=== PATIENT | female | born 1985 | race Caucasian/White ===

== ENCOUNTER 2017-05-05 14:02 | Inpatient (IN) | payer OTHER ==
[2017-05-05] MEDS ORDERED: NS 1,000 ML IV ONE (14:06)
[2017-05-05] MEDS ORDERED: METOCLOPRAMIDE 10 MG/2 ML VIAL IVP ONE (14:06)
[2017-05-05] MEDS ORDERED: KETOROLAC 30 MG/1 ML SDV IVP ONE (14:06)
--- NOTE | 2017-05-05 14:06 | EDPHY ---
HPI/HX/ROS/PE/MDM Narrative: CHIEF COMPLAINT: Migraine, left sided numbness HPI: The patient is a 31 y/o female with a history of migraines and hypothyroidism arriving via EMS complaining of a migraine with aura, onset 8:30 AM, 6 hours ago. She took 2 Tylenol PM around 10:00 AM, which usually helps, but did not experience any improvement. Around an hour ago she began experiencing left sided numbness with a "pins and needles" feeling. She is complaining of difficulty breathing due to tightness in her lungs, tightness in her neck, and numbness in her tongue. She denies any trauma or precipitating factors. EMS did not note complaint of extremity numbness, and stated that patient was able to walk on scene. REVIEW OF SYSTEMS: Aside from elements discussed in the HPI, a comprehensive 10-point review of systems was reviewed and is negative. PMH: Migraines, hypothyroidism SOCIAL HISTORY: Sister lives nearby, lives in [place], PHYSICAL EXAM: General:Patient is lethargic. Able to speak in full sentences but slowly. ENT:Eyes are normal to inspection. ENT inspection normal. Photophobia noted. Neck: Normal inspection. Full range of motion. Respiratory:No respiratory distress. Breath sounds normal bilaterally. Cardiovascular: Regular rate and rhythm. Strong peripheral pulses. Normal cap refill. Abdomen:The abdomen is nontender to palpation. There are no peritoneal signs. There are normal bowel sounds. Back: Normal to inspection. No tenderness to palpation. Skin: Normal color. No rash. Warm and dry. Extremities: Normal appearance. No signs trauma. Neuro: Oriented x3. Able to flex and extend fingers of left hand and extend wrist, but 0/5 strength to elbow and shoulder. LTS intact throughout LUE. Exam somewhat variable - unclear if she is actually giving full effort. EOMI. No facial droop. Mild slurred speech. ED Course: Study: Non-contrast CT of the head Indication: Numbness in the left side Results: CT scan of the head was obtained. The results of the study are: Normal The study was read by the radiologist, Dr. Brumfield. I viewed the images myself on the PACS system. Study: X-ray of the chest Indication: Left-sided numbness Results: X-ray of the chest was obtained. The results of the study are: normal The study was read by the radiologist, Dr. Brumfield. I viewed the images myself on the PACS system. EKG was ordered and interpreted by myself. Normal sinus rhythm, Please see [facility] system for official reading. Study: CTA of the head and neck Indication: Left-sided numbness Results: CTA scan of the head and neck was obtained. The results of the study are: vertebral artery occluded The study was read by the radiologist, Dr. Dominguez. I viewed the images myself on the PACS system. 1414: On initial exam patient is presenting with left-sided weakness and numbness onset 1 hour ago. She is able to speak in full sentences but is speaking slowly. She describes this as different from any migraine she has had before. Due to her symptoms I feel it is necessary to call a stroke alert. 1424: I consulted with Dr. Izaguirre at [facility] regarding this patient. She agrees to examine using the robot once she is back from imaging. 1430: I spoke with Dr. Brumfield, radiology regarding this patient. CT was normal. 1604: I spoke with Dr. Izaguirre regarding her evaluation of this patient. She advises no TPA secondary to improving symptoms on her exam. She requests a CTA, which was ordered. If negative, she would like to admit overnight and likely MRI in the morning. 1830: I spoke with Dr. Dominguez, radiology, who confirmed occlusion of vertebral artery. [facility] re-paged for consult, as patient may be a candidate for angiography and IR removal of clot. 18:35: Spoke with Dr. Hicks from [facility] and informed her of CTA results - she is not familiar with the case and is going to contact Dr. Izaguirre. 1852: I spoke with Dr. Hicks from [facility]. She has reviewed the case and discussed the imaging report with IR at her facility. She does not advise transfer or acute intervention. They are unclear if this represents a chronic vs an acute occlusion. She advises admission here at [facility]. 1906: I spoke with Dr. Ceballos, neurology, who agrees to consult on this patient. He agrees on admission. Paging hospitalist service. 2: I spoke with hospitalist service regarding admission for this patient. Dr. Conroy agrees to admit. - Data Points Imaging Results: Imaging Impressions Chest X-Ray 05/05/17 14:20 Impression: Negative portable chest. Head CT 05/05/17 14:20 Impression: Normal noncontrast CT of the brain. Results called to Dr. Jase Torre at 2:28 PM at the time of the interpretation. Head CTA 05/05/17 16:09 Impression: 1. Patent right and left carotid vasculature. 2. Patent right vertebral artery, however the left vertebral artery is occluded 13 mm after its takeoff with some "wispy" reconstitution at the left C2-C3 level , and then further occlusion to the skull base where it is then patent once again (perhaps from cross fill from the patent right vertebral artery). CT ANGIOGRAPHY OF THE HEAD: The major vessels of the [place] demonstrate no evidence of an aneurysm, avascular malformation, dissection, flow -limiting stenosis, or occlusion. The distal cervical, petrous, cavernous, and supraclinoid portions of the right and left internal carotid arteries are patent. As was mentioned above, the left vertebral artery is occluded at the skull base, although reconstitutes just proximal to the vertebral-basilar confluence, and the right PICA is patent, and there does appear to be some flow within the left PICA. The basilar artery, superior cerebellar arteries, and the posterior cerebral arteries are also patent. The superior sagittal sinus, transverse sinuses, and major veins demonstrate no evidence of intraluminal thrombi. Impression: The distal left vertebral artery remains occluded along its most distal cervical aspect extending to the skull base, although there is some reconstituted flow just proximal to the vertebral-basilar confluence. The anterior carotid circulation is patent. Measurement of carotid stenosis is based on the residual internal carotid diameter with [place] Symptomatic Carotid Endarterectomy Trial (NASCET) based stenosis levels. Findings were discussed with Jase Torre MD at 18:24, on 05/05/2017. Neck CTA 05/05/17 16:09 Impression: 1. Patent right and left carotid vasculature. 2. Patent right vertebral artery, however the left vertebral artery is occluded 13 mm after its takeoff with some "wispy" reconstitution at the left C2-C3 level , and then further occlusion to the skull base where it is then patent once again (perhaps from cross fill from the patent right vertebral artery). CT ANGIOGRAPHY OF THE HEAD: The major vessels of the [place] demonstrate no evidence of an aneurysm, avascular malformation, dissection, flow -limiting stenosis, or occlusion. The distal cervical, petrous, cavernous, and supraclinoid portions of the right and left internal carotid arteries are patent. As was mentioned above, the left vertebral artery is occluded at the skull base, although reconstitutes just proximal to the vertebral-basilar confluence, and the right PICA is patent, and there does appear to be some flow within the left PICA. The basilar artery, superior cerebellar arteries, and the posterior cerebral arteries are also patent. The superior sagittal sinus, transverse sinuses, and major veins demonstrate no evidence of intraluminal thrombi. Impression: The distal left vertebral artery remains occluded along its most distal cervical aspect extending to the skull base, although there is some reconstituted flow just proximal to the vertebral-basilar confluence. The anterior carotid circulation is patent. Measurement of carotid stenosis is based on the residual internal carotid diameter with [place] Symptomatic Carotid Endarterectomy Trial (NASCET) based stenosis levels. Findings were discussed with Jase Torre MD at 18:24, on 05/05/2017. Imaging: Discussed imaging studies w/ consultant [employer]. vice president [employer] (ex ) Radiologist, I viewed and interpreted images myself Laboratory Results: Laboratory Results 05/05/17 14:00 05/05/17 14:00 05/05/17 05/05/17 05/05/17 14:11 14:00 14:00 WBC RBC Hgb POC Hgb 16.0 gm/dL gm/dL (12.6-16.3) Hct POC Hct 47 % % (38-47) MCV MCH MCHC RDW Plt Count MPV Neut % (Auto) Lymph % (Auto) Sherman % (Auto) Eos % (Auto) Baso % (Auto) Nucleat RBC Rel Count Absolute Neuts (auto) Absolute Lymphs (auto) Absolute Monos (auto) Absolute Eos (auto) Absolute Basos (auto) Absolute Nucleated RBC Immature Gran % Immature Gran # PT INR POC Sodium 140 mEq/L mEq/L (134-144) Sodium 140 mEq/L mEq/L (134-144) POC Potassium 3.3 mEq/L mEq/L (3.3-5.0) Potassium 3.6 mEq/L mEq/L (3.5-5.2) POC Chloride 107 mEq/L mEq/L (97-110) Chloride 104 mEq/L mEq/L (97-110) Carbon Dioxide 17 mEq/l L mEq/l (22-31) Anion Gap 19 mEq/L H mEq/L (8-16) POC BUN 10 mg/dL mg/dL (7-23) BUN 10 mg/dL mg/dL (7-23) Creatinine 0.7 mg/dL mg/dL (0.6-1.0) POC Creatinine 0.6 mg/dL mg/dL (0.6-1.0) Estimated GFR > 60 Glucose 145 mg/dL H mg/dL (70-100) POC Glucose 156 mg/dL H mg/dL (70-100) Calcium 9.9 mg/dL mg/dL (8.5-10.4) Beta HCG, Qual NEGATIVE 05/05/17 05/05/17 14:00 14:00 WBC 10.47 10^3/uL H 10^3/uL (3.80-9.50) RBC 4.95 10^6/uL 10^6/uL (4.18-5.33) Hgb 15.5 g/dL g/dL (12.6-16.3) POC Hgb Hct 43.7 % % (38.0-47.0) POC Hct MCV 88.3 fL fL (81.5-99.8) MCH 31.3 pg pg (27.9-34.1) MCHC 35.5 g/dL g/dL (32.4-36.7) RDW 12.4 % % (11.5-15.2) Plt Count 214 10^3/uL 10^3/uL (150-400) MPV 10.3 fL fL (8.7-11.7) Neut % (Auto) 85.4 % H % (39.3-74.2) Lymph % (Auto) 11.2 % L % (15.0-45.0) Sherman % (Auto) 2.7 % L % (4.5-13.0) Eos % (Auto) 0.0 % L % (0.6-7.6) Baso % (Auto) 0.2 % L % (0.3-1.7) Nucleat RBC Rel Count 0.0 % % (0.0-0.2) Absolute Neuts (auto) 8.95 10^3/uL H 10^3/uL (1.70-6.50) Absolute Lymphs (auto) 1.17 10^3/uL 10^3/uL (1.00-3.00) Absolute Monos (auto) 0.28 10^3/uL L 10^3/uL (0.30-0.80) Absolute Eos (auto) 0.00 10^3/uL L 10^3/uL (0.03-0.40) Absolute Basos (auto) 0.02 10^3/uL 10^3/uL (0.02-0.10) Absolute Nucleated RBC 0.00 10^3/uL 10^3/uL (0-0.01) Immature Gran % 0.5 % % (0.0-1.1) Immature Gran # 0.05 10^3/uL 10^3/uL (0.00-0.10) PT 13.0 SEC SEC (12.0-15.0) INR 0.99 (0.83-1.16) POC Sodium Sodium POC Potassium Potassium POC Chloride Chloride Carbon Dioxide Anion Gap POC BUN BUN Creatinine POC Creatinine Estimated GFR Glucose POC Glucose Calcium Beta HCG, Qual Medications Given: Discontinued Medications Diphenhydramine HCl (Benadryl Injection) 25 mg IVP EDNOW ONE Stop: 05/05/17 14:07 Last Admin: 05/05/17 14:38 Dose: 25 mg Sodium Chloride (Ns) 1,000 mls @ 0 mls/hr IV ONCE ONE; Wide Open PRN Reason: Protocol Stop: 05/05/17 14:07 Last Admin: 05/05/17 14:36 Dose: 1,000 mls Ketorolac Tromethamine (Toradol) 30 mg IVP EDNOW ONE Stop: 05/05/17 14:07 Last Admin: 05/05/17 14:37 Dose: 30 mg Metoclopramide HCl (Reglan Injection) 10 mg IVP EDNOW ONE Stop: 05/05/17 14:07 Last Admin: 05/05/17 14:41 Dose: 10 mg Ondansetron HCl (Zofran) 4 mg IVP EDNOW ONE Stop: 05/05/17 18:06 Last Admin: 05/05/17 18:07 Dose: 4 mg Point of Care Test Results: 05/05/17 14:11 POC Sodium 140 POC Potassium 3.3 POC Chloride 107 POC BUN 10 POC Creatinine 0.6 POC Glucose 156 H General Initial Vital Signs: Initial Vital Signs Heart Rate 74 05/05/17 14:14 Respiratory Rate 18 11/12/17 14:14 Blood Pressure 183/108 H 05/05/17 14:14 O2 Sat (%) 99 05/05/17 14:14 O2 Delivery Mode Room Air Allergies/Adverse Reactions: No Known Allergies Allergy (Unverified 05/05/17 14:13) Home Medications: Medication Instructions Recorded Levothyroxine [Synthroid 88 mcg 88 mcg PO DAILY06 05/05/17 (*)] Liothyronine Sodium [Cytomel 5 mcg 5 mcg PO DAILY@06 05/05/17 (*)] Multivitamins [Multivitamin (*)] 1 each PO DAILY 05/05/17 Departure - Departure Disposition: [facility] Inpatient Acute Clinical Impression: Vertebral artery occlusion Qualifiers: Laterality: left Qualified Code(s): I65.02 - Occlusion and stenosis of left vertebral artery Condition: Fair Report Scribed for: Jase Torre Report Scribed by: Mariah Padron Date of Report: 05/05/17 Time of Report: 14:06 Physician Review and Approval Statement: Portions of this note were transcribed by an ED scribe. I personally performed the history, physical exam, and medical decision making; and confirm the accuracy of the information in the transcribed note.
[2017-05-05 14:33] LABS: % IMMATURE GRANULYOCYTES 0.5 % (0.0-1.1); ABSOLUTE IMMATURE GRANULOCYTES 0.05 10^3/uL (0.00-0.10); ADD DIFF? NO; ADD MORPH? NO; ADD SCAN? NO; ATYPICAL LYMPHOCYTE FLAG 0 (0-99); FRAGMENT RBC FLAG 0 (0-99); HEMATOCRIT 43.7 % (38.0-47.0); HEMOGLOBIN 15.5 g/dL (12.6-16.3); LEFT SHIFT FLG 0 (0-99); LIPEMIA HEMOLYSIS FLAG 90 (0-99); MEAN CELL HEMOGLOBIN 31.3 pg (27.9-34.1); MEAN CELL HEMOGLOBIN CONCENTR. 35.5 g/dL (32.4-36.7); MEAN CELL VOLUME 88.3 fL (81.5-99.8); MEAN PLATELET VOLUME 10.3 fL (8.7-11.7); PLATELET CLUMPS FLAG 10 (0-99); PLATELET COUNT 214 10^3/uL (150-400); RED BLOOD CELL COUNT 4.95 10^6/uL (4.18-5.33); RED CELL DISTRIBUTION WIDTH 12.4 % (11.5-15.2)
[2017-05-05 14:50] LABS: INR 0.99 (0.83-1.16)
[2017-05-05 14:52] LABS: ANION GAP 19 mEq/L (8-16); CALCIUM 9.9 mg/dL (8.5-10.4); CARBON DIOXIDE 17 mEq/l (22-31); CHLORIDE 104 mEq/L (97-110); CREATININE 0.7 mg/dL (0.6-1.0); GLOMERULAR FILTRATION RATE > 60; GLUCOSE 145 mg/dL (70-100); POTASSIUM 3.6 mEq/L (3.5-5.2); SODIUM 140 mEq/L (134-144)
--- NOTE | 2017-05-05 15:03 | CPEKG ---
Heart Rate: 72 RR Interval: 833 P-R Interval: 152 QRSD Interval: 94 QT Interval: 448 QTC Interval: 491 P [place]: 19 QRS [place]: 58 T Wave [place]: 19 EKG Severity - BORDERLINE ECG - EKG Impression: SINUS RHYTHM EKG Impression: BORDERLINE T WAVE ABNORMALITIES EKG Impression: BORDERLINE PROLONGED QT INTERVAL Electronically Signed By: Kasey Haynes 05-May-2017 15:20:40
[2017-05-05] MEDS ORDERED: IOPAMIDOL (ISOVUE 370) 100 ML BTL IV ONE (16:29)
[2017-05-05] MEDS ORDERED: ONDANSETRON 4 MG/2 ML VIAL IVP ONE (18:05)
[2017-05-05] MEDS ORDERED: oxyCODONE IR 5 MG TAB PO PRN (20:56)
[2017-05-05] MEDS ORDERED: LORazepam 0.5 MG TAB PO PRN (20:56)
[2017-05-05] MEDS ORDERED: ONDANSETRON DISINTEGRATING 4 MG TAB PO PRN (20:56)
[2017-05-05] MEDS ORDERED: ONDANSETRON 4 MG/2 ML VIAL IVP PRN (20:56)
[2017-05-05] MEDS ORDERED: HYDROmorphone HCL/NS/PF 0.4 MG/2 ML SYR IVP PRN (21:11)
[2017-05-05] MEDS: PROMETHAZINE HCL 25 MG/ML INJ IVP PRN (21:32)
--- NOTE | 2017-05-05 22:08 | GHP ---
[f rep st] HISTORY AND PHYSICAL DATE OF ADMISSION: 05/05/2017 CHIEF COMPLAINT: Headache. HISTORY: This is a 31-year-old female, past medical history of migraine headache, who presents with severe headache associated with difficulty speaking as well as a left facial droop and left-sided arm weakness and numbness. She was initially seen as a stroke alert. Her symptoms were rapidly resolvi ng, however, and therefore she was felt by [facility] not to be a t-PA candidate. She ana russell underwent imaging in the emergency department including a noncontrasted head CT which was negati ve as well as head and neck CTA, which showed a left vertebral artery occlusion with some reconstitut ed flow which Neurology did not feel was related to her current presentation and therefore was not in dicative of need for surgical intervention. At the time of my evaluation, she continues to complain of severe headache as well as persistent nausea. She notes her speech difficulties and weakness have improved, although she still has some sensation of tingling on her left side. She has never had a s imilar episode in the past, although she does note that she has severe migraine with aura relatively frequently. PAST MEDICAL HISTORY: Migraine and hypothyroidism. PAST SURGICAL HISTORY: Denies. FAMILY HISTORY: Denies. SOCIAL HISTORY: Patient is . She does not use drugs or significant amounts of alcohol. REVIEW OF SYSTEMS: 10-point review of systems obtained, negative except as per HPI. HOME MEDICATIONS: 1. Multivitamin. 2. Liothyronine. 3. Levothyroxine. ALLERGIES: No known drug allergies. PHYSICAL EXAM: VITAL SIGNS: BP 97/59, heart rate 66, respiratory rate 18, O2 sats 97% on room air. Temperature is 36.7. GENERAL APPEARANCE: This is a well-developed, well-nourished female. She is in moderate distress. EYES: Anicteric. HENT: Oropharynx clear, MMM. CARDIOVASCULAR: RRR, no MRG . PULMONARY: CTA bilaterally. Normal work of breathing. ABDOMEN: Soft, nontender. EXTREMITIES: No clubbing, cyanosis, or edema. SKIN: Warm, dry, well perfused. NEURO/PSYCH: The patient is unc omfortable, but otherwise is moving all extremities, and cranial nerves appear to be intact. CLINICAL DATA: 1. Labs reviewed. Significant for a white blood cell count of 10.47. Coags are unremarkable. Chem istry is remarkable only for a glucose of 145. 2. Head CT personally reviewed and interpreted is normal. 3. Head and neck CTA shows left vertebral artery occlusion with some reconstituted flow. 4. Chest x-ray personally reviewed and interpreted as normal. 5. EKG personally reviewed and interpreted shows normal sinus rhythm. ASSESSMENT/PLAN: This is a 31-year-old female, past medical history of migraines, presenting with co mplex migraine and found to have a left vertebral artery occlusion. 1. Complex migraine. This seems to be the most likely etiology for her current presenting symptoms. This has been intractable and so far has been mostly refractory to pain medications. Will continue with intravenous opiates as needed along with Toradol, Benadryl, Phenergan as needed. Otherwise, he r neurologic symptoms have largely resolved. 2. Left vertebral artery occlusion. Again, this does not appear to be acute based on the imaging fi nding. Neurology is aware. Lipid panel pending and a formal neurology consultation as well pending. 3. Hyperglycemia, likely stress response. However, hemoglobin A1c currently pending, especially giv en vertebral artery occlusion. 4. Leukocytosis. Again, suspect this is stress response without other signs and symptoms of infecti on. 5. Disposition: Observation status. 6. The patient is new to my care. Old records reviewed, summarized as per HPI and Past Medical Hist ory. Care plan reviewed with the emergency room physician. Further history obtained from patient's parents present at bedside. /[id number]/MODL
[2017-05-05] MEDS: KETOROLAC 15 MG/1 ML SDV IVP SCH (23:27)
[2017-05-06 01:52] LABS: HEMOGLOBIN A1C 5.7 % (4.0-6.0)
[2017-05-06] MEDS: PROMETHAZINE HCL 25 MG/ML INJ IVP PRN ×3 (04:25→17:33)
[2017-05-06] MEDS: KETOROLAC 15 MG/1 ML SDV IVP SCH ×3 (05:13→17:32)
[2017-05-06 05:21] LABS: CHOLESTEROL 162 mg/dL (140-200); CHOLESTEROL/HDL RATIO 2.35 RATIO (1.00-4.44); HIGH DENSITY LIPOPROTEIN 69 mg/dL (40-80); LDL/HDL RATIO 1.22 RATIO (1.00-3.22); LOW DENSITY LIPOPROTEIN 84 mg/dL (70-100); NON-HIGH DENSITY LIPOPROTEIN 93 mg/dL (90-129); TRIGLYCERIDE 47 mg/dL (35-135); VERY LOW DENSITY LIPOPROTEINS 9 mg/dL (8-25)
[2017-05-06] MEDS: LIOTHYRONINE SODIUM 5 MCG TAB PO SCH (05:35)
[2017-05-06] MEDS: LEVOTHYROXINE 88 MCG TAB PO SCH (05:36)
[2017-05-06] MEDS ORDERED: LORazepam 2 MG/ML INJ IVP PRN (09:38)
--- NOTE | 2017-05-06 09:56 | NEUROPROG ---
Assessment: HOSPITAL NEUROLOGY CONSULT REQUESTING: Jovan Conroy MD REASON: occluded vertebral artery HPI: 31 year old right-handed woman with a history of migraines presented to our ED yesterday with severe nausea, vomiting, vertigo, diplopia, headache, numbness and gait instability. Patient notes yesterday morning she developed an abrupt onset left retro- orbital severe splitting headache. This was accompanied by nausea and vomiting. She was feeling very dizzy, of room-spinning quality, and couldn't walk because of her symptoms. A few hours later she developed left face/arm numbness and horizontal diplopia. She also felt her speech was slurred for a brief period of time. She called her sister, who is an ED nurse, and she was advised to go to the ED. She called 911 and was transported to our facility. She had improvement in her left face/arm numbness, but continues this morning with severe nausea/vomiting and vertigo. She is also still having episodic diplopia. She cannot move her head in the slightest without onset of vomiting. Her headache is better today. She felt short of breath with onset of her symptoms, but no chest pain or palpitations. No recent head/neck trauma or acceleration/deceleration movements. No hearing change or tinnitus. No history of hypercoaguability. She states this episode is significantly different from her prior migraines, which worried her. CT head wo was done in the ED which was normal, but CTA head/neck showed an occluded left vertebral artery about 13mm from its origin with intracranial reconstitution very distally. ROS: As per the HPI, otherwise a complete 12 point ROS was performed and is negative ALLERGIES AND MEDS: As recorded in the EMR - reviewed and reconciled PFSH: As per the intake H&P by Dr. Conroy from yesterday EXAM: VS reviewed in EMR GEN: WDWN laying in visible distress HEENT: NCAT, sclera anicteric, conjunctiva not injected, MMM, oropharynx clear, no scalp tenderness NECK: supple, nontender, no meningismus CV: RRR s1 s2 wo m/r/c/g. Carotid pulses 2+ wo bruit NEURO: MS: awake, alert, oriented to all spheres. Speech nondysarthric. No language disturbance. Follows commands. Attends to both sides. Recent/remote memory grossly intact. Mood anxious. Good fund of knowledge. CN: pupils 5mm round and reactive. Fundi with sharp discs. VFF. Primary gaze centered - no skew. Full ocular motility. Multidirectional nystagmus in all directions of gaze. Facial sensation preserved. Face symmetric. Hearing grossly intact to finger rub. Palatoglossal movements intact. Shoulder shrug and head turn strong. MOTOR: normal bulk/tone. No adventitial movements. Full power throughout. SENSORY: intact to all modalities throughout. No extinction. COORD: no ataxia FN/HS. Ralph preserved. REFLEX: plantars down. No clonus. DTRS 2/4. GAIT: deferred to PT safety eval DATA REVIEW: Labs reviewed in EMR TTE pending LDL 84 A1c pending PERSONALLY INTERPRETED RESULTS AND DATA: CTA head/neck as per the HPI CT head wo as per the [facility] IMPRESSION AND RECOMMENDATIONS: // LEFT VERTEBRAL ARTERY OCCLUSION // SUSPECT POSTERIOR CIRCULATION ISCHEMIC STROKE Patient with severe and abrupt onset of symptoms referable to the posterior circulation. This is in the setting of an occluded left vertebral artery in a young patient with no known vascular risk factors. - MRI brain wo - cont ASA - start low dose statin for goal LDL < 70 - goal normotension - avoid narcotics for headache - OK to use NSAID PRN - treat nausea/vertigo with lorazepam 0.5mg IV q8hr PRN, as well as already ordered antiemetics - would start IVF since she can't keep anything down PO - TTE pending - PT/OT/[employer] PORTAL CONSULTANT consults - further recommendations pending MRI results Objective: Vital Signs Temp Pulse Resp BP Pulse Ox 36.8 C 84 29 H 91/61 L 96 05/06/17 07:36 05/06/17 07:36 05/06/17 07:36 05/06/17 07:36 05/06/17 07:36 05/05/17 05/06/17 05/07/17 05:59 05:59 05:59 Intake Total 1100 Output Total 300 Balance 800 PT 13.0 SEC (12.0-15.0) 05/05/17 14:00 INR 0.99 (0.83-1.16) 05/05/17 14:00 Allergies/Adverse Reactions: No Known Allergies Allergy (Unverified 05/05/17 14:13)
[2017-05-06] MEDS: ENOXAPARIN 40 MG/0.4 ML SYR SC SCH (10:07)
--- NOTE | 2017-05-06 10:25 | ASMTCMCOM ---
CM Note CM Note Notes: Patient chart reviewed. MRI pending. Speech, PT and OT pending. Needs to be determined. CM to follow. Date Signed: 05/06/2017 10:24 AM Electronically Signed By:Ketty Collins RN
[2017-05-06] MEDS: ASPIRIN 81 MG CHEWABLE TAB PO SCH (13:44)
[2017-05-06] MEDS ORDERED: PROMETHAZINE HCL 25 MG/ML INJ IVP ONE (13:56)
[2017-05-06] MEDS ORDERED: D5W 1/2 NS 1,000 ML IV SCH (14:00)
--- NOTE | 2017-05-06 14:33 | HOSPPROG ---
Hospitalist Progress Note Assessment/Plan: 31-year-old female presents emergency room complaints of nausea vomiting severe migraine. Also with left-sided weakness and deficit. 1st encounter, chart reviewed. * LEFT VERTEBRAL ARTERY OCCLUSION Per CT angio * ISCHEMIC STROKE abrupt onset of symptoms occluded left vertebral artery no known vascular risk factors. MRI brain wo cont ASA * N/V Start IV fluids Continue antiemetics * ELEVATED LDL Add Lipitor * DISPOSITION Unclear given need for further evaluation Patient's symptoms resolving Residual weakness maintains Await MRI results - TTE pending - PT/OT/COUNCIL MEMBER consults Subjective: Feeling a bit better. Still having some nausea. Still has headache. Objective: Vital Signs Temp Pulse Resp BP Pulse Ox 37.1 C 84 16 91/54 L 95 05/06/17 12:00 05/06/17 12:00 05/06/17 12:00 05/06/17 12:00 05/06/17 12:00 05/05/17 05/06/17 05/07/17 05:59 05:59 05:59 Intake Total 1100 Output Total 300 350 Balance 800 -350 PT 13.0 SEC (12.0-15.0) 05/05/17 14:00 INR 0.99 (0.83-1.16) 05/05/17 14:00 - Physical Exam Constitutional: appears nourished, not in pain, uncomfortable Eyes: PERRL, anicteric sclera, EOMI Ears, Nose, Mouth, Throat: moist mucous membranes, hearing normal, ears appear normal Cardiovascular: regular rate and rhythym, No JVD, No edema Respiratory: no respiratory distress, no rales or rhonchi, reduced air movement Gastrointestinal: normoactive bowel sounds, No tenderness, No ascites Skin: warm, normal color, No erythema Musculoskeletal: normal joint ROM, no joint effusions, generalized weakness Neurologic: AAOx3, weakness, other (Slurred speech) Psychiatric: interacting appropriately, not anxious, not encephalopathic, thought process linear ICD10 Worksheet Patient Problems: Problems Problem Status Onset Vertebral artery occlusion Acute
[2017-05-06] MEDS: MULTIVITAMINS 1 EACH TAB PO SCH (14:41)
--- NOTE | 2017-05-06 16:13 | ECHO ---
[email or web address] [address] [address] Main: [phone] Fax: Transthoracic Echocardiogram Name: JUAN GRESHAM MR#: [id number] Study Date: 05/06/2017 Study Time: 10:27 AM Date of : 1985 Age: 31 year(s) Height: 172.7 cm (68 in.) Weight: 70.31 kg (155 lb.) BSA: 1.83 m2 Gender: Female Examination: Echo with Agitated Saline Indication: ischemic stroke; bubble Image Quality: Adequate Contrast: Requested by: Jaylen Ceballos BP: 91 mmHg/61 mmHg Heart Rate: Rhythm: Indication: ischemic stroke; bubble Procedure Staff Services Engineer: Cherrie Vieyra Reading Physician: Brian Musa Requesting Provider: Conclusions: Normal global systolic LV function. EF is 76 %. No regional wall motion abnormality. Normal size right ventricle. An agitated saline study was performed and was positive for intracardiac shunting. There is no previous echocardiogram for comparison. Measurements: Chambers Valvular Assessment AV/MV Valvular Assessment TV/PV Normal Normal Normal Name Value Range Name Value Range Name Value Range Ao Milvia (MM): 3.1 cm (2.2 cm-3.7 AV Vmax: 1.53 m/s (1 m/s-1.7 TR Vmax: 2.31 mm/s ( - ) cm) m/s) TR PGmax: 21 mmHg ( - ) IVSd (2D): 0.7 cm (0.6 cm-1.1 AV maxP mmHg ( - ) syst. PAP: 26 mmHg ( - ) cm) AV meanP mmHg ( - ) LVDd (2D): 4.2 cm (3.9 cm-5.3 MV E Vmax: 0.71 m/s ( - ) cm) MV A Vmax: 0.56 m/s ( - ) LVDs (2D): 2.4 cm (2.1 cm-4 MV E/A: 1.27 ( - ) cm) LVPWd (2D): 0.7 cm ( - ) LVEF (MOD4): 76 % (>=55 %) Continued Measurements: Chambers Valvular Assessment AV/MV Valvular Assessment TV/PV Name Value Name Value Name Value LADs: 2.9 cm MV E/E' Septal: 7.10 CVP (est.): 5 mmHg LADs Lon.2 cm MV E/E' Lateral: 7.20 LA Area: 17.3 cm2 Patient: JUAN GRESHAM Study Date: 05/06/2017 Page 1 of 2 10:27 AM Additional Vessels Name Value Ao Ascendin.8 cm Findings: Left Ventricle: Normal size left ventricle. No LV hypertrophy. Normal global systolic LV function. EF is 76 %. No regional wall motion abnormality. Normal diastolic LV function. Right Ventricle: Normal size right ventricle. Left Atrium: The left atrium is normal in size. An agitated saline study was performed and was positive for intracardiac shunting. Right Atrium: The right atrium is normal in size. Mitral Valve: The mitral valve is normal in appearance and function. Aortic Valve: The aortic valve is normal in appearance and function. Tricuspid Valve: The tricuspid valve is normal in appearance and function. Trivial tricuspid valve regurgitation. Pulmonic Valve: The pulmonic valve is normal in appearance and function. Aorta: The aorta is normal. Pericardium: No pericardial effusion. (No Signature Object) Patient: JUAN GRESHAM Study Date: 05/06/2017 Page 2 of 2 10:27 AM [id number]
--- NOTE | 2017-05-06 16:24 | PDMN ---
Medical Necessity Medical necessity: M81 stroke- ischemic - [address] - occluded L vertebral artery, cont. monitor and tx.
[2017-05-06] MEDS: ACETAMINOPHEN 325 MG TAB PO PRN (20:15)
[2017-05-07] MEDS: PROMETHAZINE HCL 25 MG/ML INJ IVP PRN ×3 (01:11→16:00)
[2017-05-07] MEDS: KETOROLAC 15 MG/1 ML SDV IVP SCH ×3 (01:12→12:55)
[2017-05-07] MEDS: LIOTHYRONINE SODIUM 5 MCG TAB PO SCH (06:37)
[2017-05-07] MEDS: LEVOTHYROXINE 88 MCG TAB PO SCH (06:37)
[2017-05-07 07:22] VITALS: PULSE 87
[2017-05-07] MEDS ORDERED: ATORVASTATIN CALCIUM 10 MG TAB PO SCH (09:00)
[2017-05-07] MEDS: ACETAMINOPHEN 325 MG TAB PO PRN ×2 (09:10→16:06)
[2017-05-07] MEDS: ASPIRIN 81 MG CHEWABLE TAB PO SCH (09:50)
[2017-05-07] MEDS: MULTIVITAMINS 1 EACH TAB PO SCH (09:50)
[2017-05-07] MEDS: ENOXAPARIN 40 MG/0.4 ML SYR SC SCH (09:51)
--- NOTE | 2017-05-07 10:06 | NEUROPROG ---
Assessment: BACKGROUND: 05/06 31 year old right-handed woman with a history of migraines presented to our ED 05/05 with severe nausea, vomiting, vertigo, diplopia, headache, numbness and gait instability. Patient notes yesterday morning she developed an abrupt onset left retro- orbital severe splitting headache. This was accompanied by nausea and vomiting. She was feeling very dizzy, of room-spinning quality, and couldn't walk because of her symptoms. A few hours later she developed left face/arm numbness and horizontal diplopia. She also felt her speech was slurred for a brief period of time. She called her sister, who is an ED nurse, and she was advised to go to the ED. She called 911 and was transported to our facility. She had improvement in her left face/arm numbness, but continues this morning with severe nausea/vomiting and vertigo. She is also still having episodic diplopia. She cannot move her head in the slightest without onset of vomiting. Her headache is better today. She felt short of breath with onset of her symptoms, but no chest pain or palpitations. No recent head/neck trauma or acceleration/deceleration movements. No hearing change or tinnitus. No history of hypercoaguability. She states this episode is significantly different from her prior migraines, which worried her. CT head wo was done in the ED which was normal, but CTA head/neck showed an occluded left vertebral artery about 13mm from its origin with intracranial reconstitution very distally. INTERVAL HISTORY: 05/07: Nausea and vomiting improved. Still with mild dizziness and unsteadiness when ambulating to bathroom. No new symptoms. She is very averse to long-term medication therapy. Stroke workup ongoing. EXAM: VS reviewed in EMR MS: awake, alert, oriented to all spheres. Speech with subtle dysarthria. No language disturbance. Follows commands. Attends to both sides. Recent/remote memory grossly intact. Mood anxious. Good fund of knowledge. CN: pupils 5mm round and reactive. Fundi with sharp discs. VFF. Primary gaze centered - no skew. Full ocular motility. Multidirectional nystagmus in all directions of gaze. Facial sensation preserved. Face symmetric. Hearing grossly intact to finger rub. Palatoglossal movements intact. Shoulder shrug and head turn strong. MOTOR: normal bulk/tone. No adventitial movements. Full power throughout. SENSORY: intact to all modalities throughout. No extinction. COORD: no ataxia FN/HS. Ralph preserved. REFLEX: plantars down. No clonus. DTRS 2/4. GAIT: deferred to PT safety eval DATA REVIEW: Labs reviewed in EMR TTE preserved EF, normal chamber architecture, no mass, PFO present LDL 84 A1c 5.7 LE dopplers - no DVT UDS - neg PERSONALLY INTERPRETED RESULTS AND DATA: CTA head/neck as per the [facility] CT head wo as per the [facility] MRI brain wo - acute/subacute left medullary infarct IMPRESSION AND RECOMMENDATIONS: // LEFT VERTEBRAL ARTERY OCCLUSION // LEFT MEDULLARY INFARCT Patient with severe and abrupt onset of symptoms referable to the posterior circulation. This is in the setting of an occluded left vertebral artery in a young patient with no known vascular risk factors. MRI confirms left medullary infarct. Will need to cast a broad net to work up stroke mechanism. Occluded vertebral artery shows no evidence of dissection. No head/neck injuries. In the meantime, will optimize vascular risk factors. She is very resistant to staying on medication long-term. We discussed the small investment of statin/ ASA for reduction of stroke risk. 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 LINQ) - if comprehensive stroke workup is negative (ie stroke remains cryptogenic), then consider interventional cardiology consultation for PFO closure - she will need followup in neurology clinic in 6-8 weeks - followup with PCP within 1 week of discharge - followup with cardiology and hematology per above 35 mins in direct patient care activities on the floor. Objective: Vital Signs Temp Pulse Resp BP Pulse Ox 37.0 C 87 18 104/67 93 05/06/17 23:07 05/07/17 07:21 05/07/17 07:21 05/07/17 07:21 05/07/17 07:21 05/06/17 05/07/17 05/08/17 05:59 05:59 05:59 Intake Total 860 Balance 860 PT 13.0 SEC (12.0-15.0) 05/05/17 14:00 INR 0.99 (0.83-1.16) 05/05/17 14:00 Allergies/Adverse Reactions: No Known Allergies Allergy (Unverified 05/05/17 14:13)
[2017-05-07] MEDS ORDERED: IOPAMIDOL (ISOVUE 370) 100 ML BTL IV ONE (11:03)
[2017-05-07 12:08] VITALS: BP 117/78; RESP 16; TEMP 98.6; O2SAT 94
--- NOTE | 2017-05-07 14:48 | HOSPPROG ---
Hospitalist Progress Note Assessment/Plan: 31-year-old female presents emergency room complaints of nausea vomiting severe migraine. Also with left-sided weakness and deficit. * LEFT VERTEBRAL ARTERY OCCLUSION Per CT angio * ISCHEMIC STROKE abrupt onset of symptoms occluded left vertebral artery no known vascular risk factors. 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 Feeling better. Symptoms better. Objective: Vital Signs Temp Pulse Resp BP Pulse Ox 37 C 87 16 117/78 94 05/07/17 12:00 05/07/17 12:00 05/07/17 12:00 05/07/17 12:00 05/07/17 12:00 05/06/17 05/07/17 05/08/17 05:59 05:59 05:59 Intake Total 860 Balance 860 PT 13.0 SEC (12.0-15.0) 05/05/17 14:00 INR 0.99 (0.83-1.16) 05/05/17 14:00 - Physical Exam Constitutional: no apparent distress, appears nourished, not in pain Eyes: PERRL, anicteric sclera, EOMI Ears, Nose, Mouth, Throat: moist mucous membranes, hearing normal, ears appear normal Cardiovascular: regular rate and rhythym, No JVD, No edema Respiratory: no respiratory distress, no rales or rhonchi, reduced air movement Gastrointestinal: normoactive bowel sounds, No tenderness, No ascites Skin: warm, normal color, No erythema Musculoskeletal: full muscle strength, normal joint ROM, no joint effusions Neurologic: AAOx3, numbness Psychiatric: interacting appropriately, not anxious, not encephalopathic, thought process linear ICD10 Worksheet Patient Problems: Problems Problem Status Onset Vertebral artery occlusion Acute
[2017-05-07] MEDS ORDERED: LIDOCAINE 1% 300 MG/30 ML SDV SC ONE (15:23)
--- NOTE | 2017-05-07 16:15 | ASMTCMCOM ---
CM Note CM Note Notes: Pateint medically cleared for discharge to home. Ne skilled in home needs available. Patient would benefit from outpatient rehab to assess any residual deficits. CM available should other needs arise. Date Signed: 05/07/2017 04:15 PM Electronically Signed By:Ketty Collins RN
--- NOTE | 2017-05-07 16:36 | PDPROPOC ---
Sedation Plan of Care Sedation Plan of Care: vital signs stable, mental status noted, patient educated of risks, benefits, alternatives, patient can tolerate sedation ASA Classification: ASA 1 Planned drugs: other (Topical lidocaine) Mallampati Score: Class 1 Mallampati Reference Image: Patient passed 3-3-2 rule?: Yes
--- NOTE | 2017-05-07 16:36 | PDHPUP ---
History & Physical Update H&P update statement: This history and physical update is based on an assessment of the patient which was completed after admission or registration (within 24 hours), but prior to the surgery/procedure. H&P update: H&P reviewed & patient examined, no change in patient's condition since H&P completed
--- NOTE | 2017-05-07 21:53 | GDS ---
[f rep st] DISCHARGE SUMMARY DISCHARGE DIAGNOSES: 1. Left vertebral artery occlusion. 2. Ischemic stroke. 3. Nausea, vomiting. 4. Elevated LDL. 5. Patent foramen ovale. CONSULTATIONS: 1. [facility]. 2. Cardiology. STUDIES AND PROCEDURES DONE: 1. CT angio of the head and neck. 2. CT of the head. 3. Echocardiogram. 4. Brain MRI. 5. CT angio of the chest. HOSPITAL COURSE: The patient is a 31-year-old female, who presented to the emergency with sudden and abrupt onset of left upper extremity weakness with facial numbness. She was evaluated in the emerge ncy room. A stroke alert was called. [facility] was consulted. The patient had a CT angio of her head and neck noting a left vertebral artery occlusion. She also had a CT of her head that wa s stable. [facility] opted to not administer tPA in the acute setting. The patient was admi tted to the floor. Her symptoms are significantly improving. She does have residual left-sided faci al numbness. She did receive a consultation from Neurology. The etiology of her occlusion and ische anastasiia stroke or unclear at the time of disposition. She does, of note, have a PFO on her echocardiogra m. Consultations from cardiology were had during this hospitalization,and a LINQ monitor is being ad ministered prior disposition. Patient also received a consultation from Hematology, Dr. Malone. Kalina diaz will remain on aspirin, as well as Lovenox at the time of disposition and follow up with Dr. Rasheeda bailon in the outpatient setting. Hematology workup is pending at the time of disposition. The patient h as no identifiable VTEs and will continue evaluation in the outpatient setting. I have educated the patient with regard to her need for significant followup. She will follow up with Cardiology, as wel l as Hematology. Her primary care physician would evaluate her in the next week. Neurology will see her in 6-8 weeks. Further evaluation and therapy regarding the etiology of her condition are recomm ended in the outpatient setting. DISCHARGE MEDICATIONS: Please refer to EMR form. I have provided the patient a prescription for Lip itor 10 mg daily #30, Lovenox 40 mg subcu daily, Ativan p.r.n., Zofran p.r.n., Phenergan p.r.n. She will continue on her previously prescribed Synthroid, as well as Cytomel as prescribed by her primary care physician. I have spent greater than 35 minutes in the care, coordination, and management of this patient's disp osition with care including bedside time. /[id number]/MODL
--- NOTE | 2017-05-07 23:03 | GCON ---
[f rep st] CONSULTATION HEMATOLOGY CONSULTATION DATE OF CONSULTATION: 05/07/2017 REFERRING PHYSICIAN: Jovan Conroy MD REASON FOR CONSULTATION: Further workup of left vertebral artery occlusion. RECOMMENDATIONS: 1. We will do a hypercoagulability workup to look for any underlying thrombophilia, either acquired or inherited. This will include looking for protein C, protein S, antithrombin III, factor V Leiden mutation, prothrombin mutation, as well as lupus anticoagulant anticardiolipin antibodies, and beta-2 glycoprotein 1 antibodies. We will also look at whether there is underlying autoimmune process with an YANI, rheumatoid factor, and sedimentation rate. 2. I think prophylactic anticoagulation is appropriate for now. Although if she has underlying thro mbophilia, she may require long-term anticoagulation. 3. Once her thrombophilia workup is back, we will need to discuss management of her patent foramen o yady. 4. We will draw the workup before she goes home, but from a hematologic viewpoint, she does not need to stay in the hospital to await the results. ASSESSMENT: This is a 31-year-old white female with a history of long history of migraines, as well as a history of hypothyroidism since approximately age 14, who presented with a worse headache than u melisa. In addition to developing the headache, which she says was different in character to her usual migraine, she developed tingling, weakness, slurred speech, and a facial droop. She was admitted to the hospital and had a workup, which revealed occlusion of the left vertebral artery. Part of her w orkup showed that there was intracardiac shunting consistent with a patent foramen ovale. The result s of her CT angiogram of the chest are pending. She did not have obvious venous thromboembolic disea se on ultrasound. There is no family history of inherited thrombophilia, although some family members had venous thromb oembolic disease when they were elderly. The patient has not been on control pills for the las t 5 years. She has had no history of recent trauma. Her neurologic findings have nearly resolved at this time. She no longer has weakness. She does hav e some slurred speech residual and also has some tingling in the left side. HISTORY OF PRESENT ILLNESS: Please see Assessment. PAST MEDICAL HISTORY: Remarkable for hypothyroidism. This has been diagnosed since age of 14, and s he is maintained on liothyronine. as well as levothyroxine. She has also had a long history of migra pratibha, which typically respond but this time did not want to her regular medication. PAST SURGICAL HISTORY: Essentially unremarkable. FAMILY HISTORY: As above mentioned unremarkable for inherited thrombophilia. SOCIAL HISTORY: The patient is . She does not use illicit drugs or significant amounts of al cohol. She does not smoke. REVIEW OF SYSTEMS: Remarkable for slurred speech and left-sided facial tingling. 10-system review i s otherwise unremarkable at this time. PHYSICAL EXAMINATION: GENERAL: Shows a well-developed, alert woman with slightly slurred speech. H er father is in the room with her and present for the entire interview and exam. HEENT: Shows sligh t left facial droop. NECK: Supple without adenopathy. LUNGS: Reveal no rales, rhonchi, or rubs, a nteriorly or posteriorly. CARDIAC: Shows a regular rhythm. ABDOMEN: Shows no hepatosplenomegaly. Her abdomen is soft. There is no ascites noted. LYMPH: Examination of her neck, axilla, or groin bilaterally shows no evidence of lymphadenopathy. LABORATORY DATA: Currently shows a white count of 10.47 with a hemoglobin of 15.5 and a platelet cou nt of 214,000. Her INR was normal at 0.99 on admission. Chemistries show an elevated glucose of 145 . Her calcium is normal at 9.9. Her toxicology screen was negative. RECOMMENDATIONS: We would be happy to follow up with the patient as outpatient and make additional r ecommendations regarding anticoagulation. Her hypercoag workup will probably take approximately 1 we ek to come back. Thank very much for allowing us to participate in the hematology consultation on this patient. /[id number]/MODL
--- NOTE | 2017-05-08 02:29 | CPIP ---
[f rep st] INVASIVE CARDIAC PROCEDURE DATE OF PROCEDURE: 05/07/2017 INDICATIONS: The patient is 31 years old, and presented to the hospital on May 05 with what was thought to be an embolic stroke. At this point, the etiology is truly cryptogenic. She has had a p revious echocardiogram which was unremarkable. Apparently, hypercoagulable workup is pending and Christine bellamy has requested that she have a LINQ implanted. PROCEDURE: Implantation of a [employer] LINQ. TECHNIQUE: Following informed consent, in the fasting state, patient was brought to the CVC. The 4t h intercostal space was identified and infiltrated with 1% lidocaine. Using the 15 blade, a 1 cm inc ision was made. The LINQ was then "injected" beneath the skin. Two tonya were applied and manual pressure was held. COMPLICATIONS: None. DISPOSITION: The patient will be transferred back to her room and likely discharged home later today . I have asked her to follow up with me in the office in the next 2-4 weeks. /[id number]/MODL
--- NOTE | 2017-05-08 10:07 | ASDISCHSUM ---
Discharge Information Plan Status:Home with No Needs Medically Cleared to Leave:05/06/2017 Discharge Date:05/07/2017 06:19 PM CM D/C Disposition:Home, Routine, Self-Care ADT D/C Disposition:Home, Routine, Self-Care Projected Discharge Date:05/07/2017 06:19 PM Transportation at D/C: Discharge Delay Reason: Follow-Up Date:05/07/2017 06:19 PM Discharge Slot: Final Diagnosis: Placement Information Patient Contact Information Contact Name:PN Relationship: Address: Home Phone: Work Phone: City: Alternate Phone: State/[place] Code: Email: Financial Information Financial Class:HMO and PPO Plans Primary Plan Desc:[facility] Primary Plan Number:[id number] Secondary Plan Desc: Secondary Plan Number: Assessment Information LACE LACE Acuity / Level of Care Answers: Was the patient admitted to hospital via the emergency department? Yes: Comorbidities - select Answers: Cerebrovascular disease all that apply Emergency dept visits in Answers: 0 last 6 months Score: 4 Date Signed: 05/06/2017 10:23 AM Electronically Signed By:Ketty Collins RN [facility] CM Progress Note CM Note CM Note Notes: Patient chart reviewed. MRI pending. Speech, PT and OT pending. Needs to be determined. CM to follow. Date Signed: 05/06/2017 10:24 AM Electronically Signed By:Ketty Collins RN [facility] CM Progress Note CM Note CM Note Notes: Pateint medically cleared for discharge to home. Ne skilled in home needs available. Patient would benefit from outpatient rehab to assess any residual deficits. CM available should other needs arise. Date Signed: 05/07/2017 04:15 PM Electronically Signed By:Ketty Collins RN Intervention Information
[2017-05-08 14:25] LABS: PROTEIN C ACTIVITY 90 % (70 - 150)
[2017-05-08 14:35] LABS: DILUTE RUSSELLS VIPER VENOM 0.7 ratio (0.0 - 1.1); INTERPRETATION See Comments; PT 10.8 sec; PTT 24 sec (26 - 36)
[2017-05-08 19:37] LABS: IG LAMBDA FREE LIGHT CHAIN 1.12 mg/dL; KAPPA/LAMBDA RATIO 0.8929
[2017-05-09 10:40] LABS: PROTEIN S ACTIVITY 95 % (50 - 160)
[2017-05-09 15:05] LABS: BETA 2 GLYCOPROTEIN I IGG <9.4 U/mL; BETA 2 GLYCOPROTEIN IGM <9.4 U/mL
[2017-05-10 16:48] LABS: INTERPRETATION See Comments
== END 2017-05-07 18:19 | disposition home or self-care (01) | DRG 41 ==
LOC: EDUNIT# → F3N 20:48 → OBSVTOIN 05-06 14:40
PROVIDERS: ADMIT Internal Medicine; ATTEND Internal Medicine
PROC: 0JH60PZ Insertion of Cardiac Rhythm Related Device into Chest Subcutaneous Tissue and Fascia, Open Approach (ICD-10-PCS; principal; 2017-05-07)
DX: I63.212 Cerebral infarction due to unspecified occlusion or stenosis of left vertebral artery (principal); Q21.1 Atrial septal defect; E03.9 Hypothyroidism, unspecified; G43.909 Migraine, unspecified, not intractable, without status migrainosus; R47.1 Dysarthria and anarthria
CPT/HCPCS: 80305; 82947-QW; 85303-90; 85306-90; 86147-90; 92523-GN; 92610-GN; 96374; 97161-GP; 97166-GO; 97530-GO; C1764; G0378; J1170; J1200; J1650; J1885; J2060; J2405; J2550; J2765; Q9967

== ENCOUNTER 2017-05-08 14:16 | Inpatient (IN) | payer OTHER ==
[2017-05-08] MEDS ORDERED: IOPAMIDOL (ISOVUE 370) 100 ML BTL IV ONE (14:41)
[2017-05-08 14:58] LABS: % IMMATURE GRANULYOCYTES 0.3 % (0.0-1.1); ABSOLUTE IMMATURE GRANULOCYTES 0.03 10^3/uL (0.00-0.10); ADD DIFF? NO; ADD MORPH? NO; ADD SCAN? NO; ATYPICAL LYMPHOCYTE FLAG 10 (0-99); FRAGMENT RBC FLAG 0 (0-99); HEMATOCRIT 45.9 % (38.0-47.0); LEFT SHIFT FLG 0 (0-99); LIPEMIA HEMOLYSIS FLAG 90 (0-99); MEAN CELL HEMOGLOBIN 31.7 pg (27.9-34.1); MEAN CELL HEMOGLOBIN CONCENTR. 34.9 g/dL (32.4-36.7); MEAN CELL VOLUME 91.1 fL (81.5-99.8); MEAN PLATELET VOLUME 10.2 fL (8.7-11.7); PLATELET CLUMPS FLAG 0 (0-99); PLATELET COUNT 191 10^3/uL (150-400); RED BLOOD CELL COUNT 5.04 10^6/uL (4.18-5.33); RED CELL DISTRIBUTION WIDTH 12.4 % (11.5-15.2)
--- NOTE | 2017-05-08 15:01 | EDPHY ---
H & P Stated Complaint: slur, sensation changes, on left side Time Seen by Provider: 05/08/17 14:24 - Personal History LMP (Females 10-55): 8-14 Days Ago Current Tetanus/Diphtheria Vaccine: Yes Current Tetanus Diphtheria and Acellular Pertussis (TDAP): Yes - Medical/Surgical History Hx Asthma: No Hx Chronic Respiratory Disease: No Hx Diabetes: No Hx Cardiac Disease: No Hx Renal Disease: No Hx Cirrhosis: No Hx Alcoholism: No Hx HIV/AIDS: No Hx Splenectomy or Spleen Trauma: No Other PMH: migraines, hypothyroid - Social History Smoking Status: Never smoked Constitutional: Initial Vital Signs Temperature (C) 36.7 C 05/08/17 14:19 Heart Rate 96 05/08/17 14:19 Respiratory Rate 16 05/08/17 14:19 Blood Pressure 102/70 05/08/17 14:19 O2 Sat (%) 97 05/08/17 14:19 O2 Delivery Mode Room Air Allergies/Adverse Reactions: No Known Allergies Allergy (Unverified 05/05/17 14:13) Home Medications: Medication Instructions Recorded Levothyroxine [Synthroid 88 mcg 88 mcg PO DAILY06 05/05/17 (*)] Liothyronine Sodium [Cytomel 5 mcg 5 mcg PO DAILY@06 05/05/17 (*)] Multivitamins [Multivitamin (*)] 1 each PO DAILY 05/05/17 Acetaminophen [Tylenol 325mg (*)] 650 mg PO Q4HRS PRN tab 05/07/17 Aspirin [Aspirin 81mg (*)] 81 mg PO DAILY tab.chew 05/07/17 Atorvastatin Calcium [Lipitor 10 10 mg PO DAILY #30 tab 05/07/17 mg (*)] Enoxaparin [Lovenox 40 MG (*)] 40 mg SC DAILY #10 syr 05/07/17 LORazepam [Ativan (*)] 0.5 - 1 mg PO Q8HRS PRN #10 tab 05/07/17 Ondansetron Odt [Zofran Odt 4 mg 4 mg PO Q4HRS PRN #30 tab 05/07/17 (*)] Promethazine HCl [Phenergan 25mg 25 mg PO Q6 #20 tab 05/07/17 (*)] Medical Decision Making - Diagnostics Imaging Results: Imaging Impressions Chest X-Ray 05/08/17 14:27 Impression: Normal. Head CT 05/08/17 14:27 Impression: 1. No significant intracranial abnormality seen. Left medulla brainstem infarct not delineated on CT imaging. If symptoms worsen, additional imaging may be necessary. Findings discussed with Aydin Van MD at 14:54 hour, 05/08/2017. ED Course/Re-evaluation: CHIEF COMPLAINT: Recurrence neurologic symptoms HISTORY OF PRESENT ILLNESS: 31-year-old female who this past Saturday presented with left-sided neurologic deficits including numbness tingling and some visual disturbances. She was worked up and found to have a left vertebral artery occlusion from a clot. She did not meet criteria for tPA at the time. She was admitted to the hospital and workup ensued. She was discharged last evening at 6:00 p.m. on prophylactic Lovenox not therapeutic Lovenox. She is also on aspirin. About 30 minutes before arrival here her left sided arm leg and face numbness and tingling became worse. She denies any motor deficits. She has slight visual change but not as bad as when she presented on Saturday. REVIEW OF SYSTEMS: A 10 point review of systems was performed and is negative with the exception of the elements mentioned in the history of present illness. PHYSICAL EXAM: HR, BP, O2 Sat, RR. Temp noted General Appearance: Alert, well hydrated, appropriate, and non-toxic appearing. Head: Atraumatic without scalp tenderness or obvious injury Eyes: Pupils equal, round, reactive to light and accommodation, EOMI, no trauma , no injection. Ears: Clear bilaterally, no perforation, normal landmarks Nose: Atraumatic, no rhinorrhea, clear. Throat: There is no erythema or exudates, no lesions, normal tonsils, mucus membranes moist. Neck: Supple, 2+ carotid upstroke, nontender, no lymphadenopathy. Respiratory: No retractions, no distress, no wheezes, and no accessory muscle use. Lungs are clear to auscultation bilaterally. Cardiovascular: Regular rate and rhythm, no murmurs, rubs, or gallops. Bilateral carotid, radial, dorsalis pedis, and posterior tibial pulses intact. Good capillary refill all extremities. Gastrointestinal: Abdomen is soft, nontender, non-distended, no masses, no rebound, no guarding, no peritoneal signs. Musculoskeletal: Normal active ROM of all extremities, atraumatic. Neurological: Alert, appropriate, and interactive. The patient has normal DTRs and non-focal cranial nerves, motor, sensory, and cerebellar exam. Skin: No rashes, good turgor, no nodules on palpation. Past medical history: Vertebral artery occlusion on the left Past surgical history: Noncontributory Family history: Noncontributory Social history: although her 's in [place], 2-year-old child , does not abuse tobacco drugs or alcohol DIAGNOSTICS/PROCEDURES/CRITICAL CARE TIME: Study: CT of the head without and angiography of the head neck Indication: known left vertebral occlusion with new recurrence deficits Results: CT scan of the brain and neck was obtained. The results of the study are noncontrast head CT is unremarkable, the angio of the head is unremarkable, the angiography of the neck shows slight recanalization of the left vertebral artery but potentially she is throwing some emboli from this artery.. The study was read by the radiologist, Dr. Edin Hough . I viewed the images myself on the PACS system. DIFFERENTIAL DIAGNOSIS: The differential diagnosis for the patient's neurologic deficits included but was not limited to peripheral causes, central causes including CVA, TIA, electrolyte abnormalities and dehydration, cardiogenic causes, atypical causes like migraine syndrome. MEDICAL DECISION MAKING: This patient has a known left vertebral occlusion which began on Saturday. She suffered a small medulla stroke also. Due to the stroke on Saturday and the fact that she was sent out on prophylactic Lovenox she is not a candidate for tPA. I called the [facility] neurologist immediately upon her arrival after calling a stroke alert. She has no objective findings in only subjective neurologic deficits currently. She is getting re-scanned. Since she is not a tPA candidate the only intervention would be in interventional clot extraction if her clot has progressed further into the basilar system. We are waiting that information I will discussed again with the [facility] neurologist. Additionally, this patient was only sent out on prophylactic Lovenox with a known clot and I believe she needs full anticoagulation. I will start her on unfractionated heparin now that her head CT is unremarkable. Patient is fully anticoagulated on heparin. Neurology will see her. I will admit her to Dr. Yoko Duncan. She does not have any clot in her basilar system therefore she is not a candidate to be transferred to [facility] for clot removal. In addition, she infarcted on Saturday and she is anticoagulated so she meets absolute criteria to not receive tPA. - Data Points Laboratory Results: Laboratory Results 05/08/17 14:33 05/08/17 14:33 05/08/17 05/08/17 05/08/17 14:33 14:33 14:33 WBC RBC Hgb Hct MCV MCH MCHC RDW Plt Count MPV Neut % (Auto) Lymph % (Auto) [place] % (Auto) Eos % (Auto) Baso % (Auto) Nucleat RBC Rel Count Absolute Neuts (auto) Absolute Lymphs (auto) Absolute Monos (auto) Absolute Eos (auto) Absolute Basos (auto) Absolute Nucleated RBC Immature Gran % Immature Gran # PT Pending INR Pending APTT Pending Sodium 143 mEq/L mEq/L (134-144) Potassium 3.8 mEq/L mEq/L (3.5-5.2) Chloride 107 mEq/L mEq/L (97-110) Carbon Dioxide 25 mEq/l mEq/l (22-31) Anion Gap 11 mEq/L mEq/L (8-16) BUN 9 mg/dL mg/dL (7-23) Creatinine 0.7 mg/dL mg/dL (0.6-1.0) Estimated GFR > 60 Glucose 102 mg/dL H mg/dL (70-100) Calcium 9.3 mg/dL mg/dL (8.5-10.4) Troponin I Pending Beta HCG, Qual NEGATIVE 05/08/17 14:33 WBC 9.46 10^3/uL 10^3/uL (3.80-9.50) RBC 5.04 10^6/uL 10^6/uL (4.18-5.33) Hgb 16.0 g/dL g/dL (12.6-16.3) Hct 45.9 % % (38.0-47.0) MCV 91.1 fL fL (81.5-99.8) MCH 31.7 pg pg (27.9-34.1) MCHC 34.9 g/dL g/dL (32.4-36.7) RDW 12.4 % % (11.5-15.2) Plt Count 191 10^3/uL 10^3/uL (150-400) MPV 10.2 fL fL (8.7-11.7) Neut % (Auto) 63.1 % % (39.3-74.2) Lymph % (Auto) 30.3 % % (15.0-45.0) [place] % (Auto) 5.9 % % (4.5-13.0) Eos % (Auto) 0.2 % L % (0.6-7.6) Baso % (Auto) 0.2 % L % (0.3-1.7) Nucleat RBC Rel Count 0.0 % % (0.0-0.2) Absolute Neuts (auto) 5.96 10^3/uL 10^3/uL (1.70-6.50) Absolute Lymphs (auto) 2.87 10^3/uL 10^3/uL (1.00-3.00) Absolute Monos (auto) 0.56 10^3/uL 10^3/uL (0.30-0.80) Absolute Eos (auto) 0.02 10^3/uL L 10^3/uL (0.03-0.40) Absolute Basos (auto) 0.02 10^3/uL 10^3/uL (0.02-0.10) Absolute Nucleated RBC 0.00 10^3/uL 10^3/uL (0-0.01) Immature Gran % 0.3 % % (0.0-1.1) Immature Gran # 0.03 10^3/uL 10^3/uL (0.00-0.10) PT INR APTT Sodium Potassium Chloride Carbon Dioxide Anion Gap BUN Creatinine Estimated GFR Glucose Calcium Troponin I Beta HCG, Qual Departure - Departure Disposition: [facility] Inpatient Acute Clinical Impression: Acute ischemic stroke Vertebral artery occlusion Qualifiers: Laterality: left Qualified Code(s): I65.02 - Occlusion and stenosis of left vertebral artery Condition: Fair Referrals: Kriss Chew MD [Primary Care Provider] - As per Instructions
[2017-05-08] MEDS ORDERED: HEPARIN/DEXTROSE 500 ML IV ONE (15:05)
[2017-05-08] MEDS ORDERED: HEPARIN 10,000 UNIT/10 ML MDV IVP ONE (15:05)
--- NOTE | 2017-05-08 15:10 | CPEKG ---
Heart Rate: 75 RR Interval: 800 P-R Interval: 144 QRSD Interval: 80 QT Interval: 380 QTC Interval: 425 P [place]: 14 QRS [place]: 47 T Wave [place]: 31 EKG Severity - NORMAL ECG - EKG Impression: SINUS RHYTHM Electronically Signed By: Aydin Van 08-May-2017 15:18:50
[2017-05-08 15:11] LABS: ANION GAP 11 mEq/L (8-16); CALCIUM 9.3 mg/dL (8.5-10.4); CARBON DIOXIDE 25 mEq/l (22-31); CHLORIDE 107 mEq/L (97-110); CREATININE 0.7 mg/dL (0.6-1.0); GLOMERULAR FILTRATION RATE > 60; GLUCOSE 102 mg/dL (70-100); POTASSIUM 3.8 mEq/L (3.5-5.2); SODIUM 143 mEq/L (134-144)
[2017-05-08 15:16] LABS: APTT 28.7 SEC (23.0-38.0); INR 0.98 (0.83-1.16); PROTIME(PATIENT) 12.9 SEC (12.0-15.0)
[2017-05-08 15:23] LABS: TROPONIN I < 0.012 ng/mL (0.000-0.034)
--- NOTE | 2017-05-08 16:54 | ASMTCMCOM ---
CM Note CM Note Notes: Chart reviewed and met with patient in ER Patient admitted to [facility] on 05/05/17 and discharged home yesterday, 05/07/17 (see details in reports). Patient presents today with similar symptoms and is to be admitted to the ICU for continued work up. Patient has strong support network of family including a sister at the bedside, her father who is with her 18 month old child, and a sister in law, Concepcion who is in the process of notifying patient's (he is in [place] with [employer]) through the proper channels in order to get him home. Concepcion assures CM that she will let CM and/or hospital medicine know what we need to do to provided any necessary documentation, etc. to facilitate this process. CM will follow patient through hospital admission and assist with D/C planning as needed. Date Signed: 05/08/2017 04:54 PM Electronically Signed By:Magdalena Rose RN
[2017-05-08] MEDS ORDERED: HEPARIN 10,000 UNIT/10 ML MDV IVP PRN (18:55)
[2017-05-08] MEDS ORDERED: HYDROmorphone HCL/NS/PF 0.4 MG/2 ML SYR IVP PRN (18:56)
[2017-05-08] MEDS ORDERED: ACETAMINOPHEN 650 MG SUPP PR PRN (18:56)
[2017-05-08] MEDS ORDERED: ONDANSETRON 4 MG/2 ML VIAL IVP PRN (18:56)
[2017-05-08] MEDS ORDERED: LORazepam 0.5 MG TAB PO PRN (18:59)
[2017-05-08] MEDS ORDERED: D5W 1/2 NS W/ 20 KCl/L 1,000 ML IV SCH (19:00)
[2017-05-08] MEDS ORDERED: HEPARIN/DEXTROSE 500 ML IV SCH (19:00)
--- NOTE | 2017-05-08 19:53 | GHP ---
[f rep st] HISTORY AND PHYSICAL DATE OF ADMISSION: 05/08/2017 CHIEF COMPLAINT: Left-sided numbness. HISTORY OF PRESENT ILLNESS: The patient is a 31-year-old female, who was just discharged from the [facility] yesterday, after sustaining a stroke. She presented to the hospital on May 05, had a s troke alert. She had a complete left hemiparesis; however, during her initial evaluation in the [facility] room, her symptoms were rapidly improving, so she was not felt to be a tPA candidate. At the time of discharge, her only residual neuro symptom was a little bit of left-sided facial numbn ess. She was found to have a left vertebral artery occlusion with collateralization from the right. She was seen in consultation by Dr. Malone, of hematology, and hypercoagulable workup was sent. [facility] medications were aspirin 81 mg and Lovenox 40 mg subcu daily. Her echo showed a PFO. Cardio logy placed a link monitor prior to discharge. Her MRI showed a medullary infarct. Her CT angiogram of the chest was negative for PE. She now re-presents to the hospital with recurrence of symptoms. She was discharged last night about 6 p.m. At noon today, she noticed recurrence of the left-sided numbness felt in her arm, her torso, and her leg. Her left arm is slightly weak, but nothing as severe as she had the first time. She d eveloped a visual aura, which she had prior to her previous stroke, and some slurred speech. Her str dustin symptoms have also included nausea, vomiting, vertigo, diplopia, headache and left shoulder cramp ing. On presentation to the emergency room, a CT head and CT angiogram of the head and neck were repeated. This was reviewed with [facility] and she is not felt to be a candidate for intervention, so she was admitted here on an IV heparin drip. PAST MEDICAL HISTORY: 1. Migraine headache. 2. Hypothyroidism. 3. Stroke. 4. Chronic left vertebral artery occlusion. 5. PFO. MEDICATIONS: Please see computer record for full detailed list. ALLERGIES: No known drug allergies. SOCIAL HISTORY: No smoking. No alcohol. She has a 2-year-old child. Her is in [place] . She does have a large local family, however, who is very supportive. REVIEW OF SYSTEMS: Complete review of systems obtained. Review of systems negative regarding consti tutional, HEENT, GI, pulmonary, cardiovascular, , hematologic, skin, muscular, endocrine, psych, ex cept for positives and negatives as in HPI. FAMILY HISTORY: Negative for inherited thrombophilia. PHYSICAL EXAMINATION: GENERAL: Well-developed, well-nourished female, in no acute distress. VITAL SIGNS: Temperature 36.9, pulse 78, blood pressure 120/89, satting 97% on room air. HEENT: Normal c onjunctivae. Pupils are reactive to light. Normal ears and nose. Hearing intact. Normal teeth. O ropharynx moist. NECK: Trachea midline. No thyromegaly. CHEST: Normal effort. LUNGS: Clear to auscultation bilaterally. CARDIOVASCULAR: Regular rate and rhythm. No murmur. No extremity edema. ABDOMEN: Soft, nontender. No hepatosplenomegaly. SKIN: Warm, dry, intact, without rash. MUSCUL OSKELETAL: No cyanosis or clubbing. Strength is 5/5 upper and lower extremities. NEUROLOGIC: Cran ial nerves intact. Decreased sensation to the left side of the face, left arm, left torso, left leg. PSYCHIATRIC: Alert and oriented x3. Normal affect. Normal judgment and insight. Normal memory. There is no slurred speech at this time. LABORATORY DATA: White count 9.46, hematocrit 45.9, platelets 191. Sodium 143, potassium 3.8, chlor alvaro 107, bicarb 25, BUN 9, creatinine 0.7, glucose 102. Troponin is negative. Beta HCG is negative. INR is 0.98. EKG viewed by me, my personal interpretation is normal sinus rhythm, no ST-T wave ann nges. Chest x-ray is negative. Head CT is negative. CT angiogram shows occluded left vertebral art yazan with reconstitution secondary collaterals with evidence of intraluminal thrombus. ASSESSMENT/PLAN: 1. Recurrent stroke versus transient ischemic attack. It appears she has failed aspirin 81 mg plus Lovenox 40 mg subcutaneously daily. She presents with recurrence of symptoms. Her CT angiogram of t he neck is now showing intraluminal thrombus at the vertebral artery occlusion and she is on intraven ous heparin. Her scans were reviewed by the emergency room with [place] [facility] [place] and there is no indication for further intervention, so she was not transferred. Hypercoagulable workup was sent on last admission, remains pending. 2. Vertebral artery occlusion on the left with collateralization. I suspect this is probably an rashad tomic variant rather than an atherosclerotic occlusion, but she has been started on a statin drug. 3. Patent foramen ovale. There has been consideration of closure given her presentation of stroke. 4. Hypothyroidism. Continue Synthroid. 5. Status post Link monitor. She will be monitored on telemetry here, but there has been no evidenc e of atrial fibrillation. 6. Dysphagia. She failed her swallow screen and will be n.p.o. until formal speech therapy evaluati on in the morning. CODE STATUS: Full. ADMISSION STATUS: We will admit to inpatient. I anticipate greater than 2 midnights. DVT PROPHYLAXIS: She is low risk. /[id number]/MODL
[2017-05-08] MEDS: ACETAMINOPHEN 325 MG TAB PO PRN (19:59)
[2017-05-08] MEDS: PROMETHAZINE HCL 25 MG/ML INJ IVP PRN (20:00)
[2017-05-08 21:52] LABS: % IMMATURE GRANULYOCYTES 0.5 % (0.0-1.1); ABSOLUTE IMMATURE GRANULOCYTES 0.05 10^3/uL (0.00-0.10); ADD DIFF? NO; ADD MORPH? NO; ADD SCAN? NO; ATYPICAL LYMPHOCYTE FLAG 0 (0-99); FRAGMENT RBC FLAG 0 (0-99); HEMATOCRIT 40.2 % (38.0-47.0); HEMOGLOBIN 14.2 g/dL (12.6-16.3); LEFT SHIFT FLG 0 (0-99); LIPEMIA HEMOLYSIS FLAG 90 (0-99); MEAN CELL HEMOGLOBIN 31.8 pg (27.9-34.1); MEAN CELL HEMOGLOBIN CONCENTR. 35.3 g/dL (32.4-36.7); MEAN CELL VOLUME 90.1 fL (81.5-99.8); MEAN PLATELET VOLUME 10.3 fL (8.7-11.7); PLATELET CLUMPS FLAG 0 (0-99); PLATELET COUNT 186 10^3/uL (150-400); RED BLOOD CELL COUNT 4.46 10^6/uL (4.18-5.33); RED CELL DISTRIBUTION WIDTH 12.4 % (11.5-15.2)
[2017-05-08 22:19] LABS: INR 1.12 (0.83-1.16); PROTIME(PATIENT) 14.3 SEC (12.0-15.0)
[2017-05-08 22:21] LABS: APTT 103.4 SEC (23.0-38.0)
[2017-05-09] MEDS: PROMETHAZINE HCL 25 MG/ML INJ IVP PRN ×2 (02:55→09:43)
[2017-05-09 03:57] LABS: % IMMATURE GRANULYOCYTES 0.3 % (0.0-1.1); ABSOLUTE IMMATURE GRANULOCYTES 0.03 10^3/uL (0.00-0.10); ADD DIFF? NO; ADD MORPH? NO; ADD SCAN? NO; ATYPICAL LYMPHOCYTE FLAG 0 (0-99); FRAGMENT RBC FLAG 0 (0-99); HEMATOCRIT 39.9 % (38.0-47.0); HEMOGLOBIN 13.7 g/dL (12.6-16.3); LEFT SHIFT FLG 0 (0-99); LIPEMIA HEMOLYSIS FLAG 90 (0-99); MEAN CELL HEMOGLOBIN 31.2 pg (27.9-34.1); MEAN CELL HEMOGLOBIN CONCENTR. 34.3 g/dL (32.4-36.7); MEAN CELL VOLUME 90.9 fL (81.5-99.8); MEAN PLATELET VOLUME 10.4 fL (8.7-11.7); PLATELET CLUMPS FLAG 0 (0-99); PLATELET COUNT 164 10^3/uL (150-400); RED BLOOD CELL COUNT 4.39 10^6/uL (4.18-5.33); RED CELL DISTRIBUTION WIDTH 12.4 % (11.5-15.2)
[2017-05-09 04:02] VITALS: TEMP 98.4
[2017-05-09 05:13] LABS: ANION GAP 9 mEq/L (8-16); CALCIUM 8.8 mg/dL (8.5-10.4); CARBON DIOXIDE 24 mEq/l (22-31); CHLORIDE 106 mEq/L (97-110); CREATININE 0.7 mg/dL (0.6-1.0); GLOMERULAR FILTRATION RATE > 60; GLUCOSE 100 mg/dL (70-100); POTASSIUM 3.9 mEq/L (3.5-5.2); SODIUM 139 mEq/L (134-144)
[2017-05-09] MEDS ORDERED: LEVOTHYROXINE 88 MCG TAB PO SCH (07:00)
[2017-05-09] MEDS ORDERED: LIOTHYRONINE SODIUM 5 MCG TAB PO SCH (07:00)
--- NOTE | 2017-05-09 08:15 | NEUROPROG ---
Assessment: HOSPITAL NEUROLOGY CONSULT REQUESTING: Yoko Duncan MD REASON: stroke symptoms HPI: 31 year old right-handed woman with a history of migraines who was discharged from out facility on 05/07 with an acute ischemic stroke in the left medulla with evidence of proximal left vertebral artery occlusion. She was not a thrombolytic/intervention candidate. Her stroke manifest as nausea, vomiting, horizontal diplopia, vertigo, gait instability, dysarthria and left face/arm numbness. She had evidence of a PFO on TTE, but no DVT on LE doppler and no occult PE on CTA chest. UDS was negative. She has no history of prior clotting disorder/events. No cardiac history or vascular risk factors. No head /neck injury. Hypercoaguable labs were drawn at the direction of our hematology colleagues. Loop recorder was implanted by our cardiology colleagues. Symptoms had improved at discharge. She was started on ASA 81mg daily, and prophylactic dose Lovenox as recommended by hematology. Statin was also started. She returned to our ED yesterday as her prior stroke symptoms had returned. Specifically, she noted reemergence of left face/arm numbness/tingling. She was also experiencing headache of her typical migraine semiology. ED evaluation included CT head wo, which was unremarkable. CTA head/neck redemonstrated left vertebral artery occlusion about 15mm from the origin with distal reconstitution at C2-3 level, then tandem thrombus around the level of C1 , all stable from prior exam. Symptoms have been improving since admission. She is now only experiencing some mild tingling in the left hemiface. ROS: As per the HPI, otherwise a complete 12 point ROS was performed and is negative ALLERGIES AND MEDS: As recorded in the EMR - reviewed and reconciled PFSH: As per the intake H&P by Dr. Duncan from yesterday EXAM: VS reviewed in EMR GEN: WDWN laying in NAD HEENT: NCAT, sclera anicteric, conjunctiva not injected, MMM, oropharynx clear, no scalp tenderness NECK: supple, nontender, no meningismus CV: RRR s1 s2 wo m/r/c/g. Carotid pulses 2+ wo bruit NEURO: NIHSS 1 (left face sensory) MS: awake, alert, oriented to all spheres. Speech nondysarthric. No language disturbance. Follows commands. Attends to both sides. Recent/remote memory grossly intact. Mood euthymic. Good fund of knowledge. CN: pupils 4mm round and reactive. Fundi with sharp discs. VFF. Primary gaze centered. No nystagmus. Full ocular motility. Facial sensation diminished on left. Face symmetric. Hearing grossly intact to finger rub. Palatoglossal movements intact. Shoulder shrug and head turn strong. MOTOR: normal bulk/tone. No adventitial movements. Full power throughout. SENSORY: intact LT/PP in extremities and symmetric. No extinction. COORD: no ataxia FN/HS. Ralph preserved. REFLEX: plantars extensor. No clonus. DTRS 2/4. GAIT: deferred to PT safety eval DATA REVIEW: Labs reviewed in EMR PERSONALLY INTERPRETED RESULTS AND DATA: CT head wo per HPI CTA head/neck per HPI IMPRESSION AND RECOMMENDATIONS: // SUBACUTE STROKE // LIKELY RECRUDESCENCE OF PRIOR STROKE SYMPTOMS Patient returns with recrudescence of her initial stroke symptoms 05/05. No new signs/symptoms to suggest area of new infarct, but will rule out with repeat MRI brain wo. Likely fluctuating old symptoms/recrudescence, as the area of recent infarct is going to still be irritated from inflammatory response. Would continue current measures and monitoring in ICU. If no new infarct, then can de-escalate therapeutic anticoagulation and resume previously recommended antithrombotic strategy by hematology (ASA and prophylactic dose Lovenox). We discussed stroke education again. We reviewed signs and symptoms of stroke, and activating EMS for any concerns. Objective: Vital Signs Temp Pulse Resp BP Pulse Ox 36.9 C 73 18 100/65 97 05/09/17 04:00 05/09/17 08:00 05/09/17 08:00 05/09/17 08:00 05/09/17 08:00 Laboratory Results 05/09/17 03:30 05/09/17 03:30 05/08/17 05/09/17 05/10/17 05:59 05:59 05:59 Intake Total 1020 Output Total 900 Balance 120 PT 14.3 SEC (12.0-15.0) 05/08/17 21:30 INR 1.12 (0.83-1.16) 05/08/17 21:30 Allergies/Adverse Reactions: No Known Allergies Allergy (Unverified 05/05/17 14:13)
[2017-05-09] MEDS ORDERED: ATORVASTATIN CALCIUM 10 MG TAB PO SCH (09:00)
--- NOTE | 2017-05-09 09:01 | HOSPPROG ---
Hospitalist Progress Note Assessment/Plan: #Left facial/hand numbness: no acute infarct on CT or MRI. Evaluated by Dr. Be with Neuro. Likely residual symptoms from recent CVA #CVA: no acute findings. Cont ASA, statin -PFO on last echo. LINQ recorder #Left vertebral artery occlusion: stable. Hypercoag labs pending. Change to treatment dose of Lovenox. FU Dr. Malone -provided strict return precautions and to avoid activities causing high- velocity injury to neck or changes in intracranial pressure, ie yoga, chiropractic to neck, yoga, etc Critical care time spent: 60 min counseling patient on treatment plan and d/w Dr. Malone, Dr. Be Subjective: still with facial, mouth numbness Objective: Vital Signs Temp Pulse Resp BP Pulse Ox 36.9 C 73 18 100/65 97 05/09/17 04:00 05/09/17 08:00 05/09/17 08:00 05/09/17 08:00 05/09/17 08:00 Laboratory Results 05/09/17 03:30 05/09/17 03:30 05/08/17 05/09/17 05/10/17 05:59 05:59 05:59 Intake Total 1020 Output Total 900 Balance 120 PT 14.3 SEC (12.0-15.0) 05/08/17 21:30 INR 1.12 (0.83-1.16) 05/08/17 21:30 - Physical Exam Constitutional: uncomfortable Eyes: PERRL Ears, Nose, Mouth, Throat: moist mucous membranes Cardiovascular: regular rate and rhythym, no murmur, rub, or gallop Respiratory: no respiratory distress, no rales or rhonchi Gastrointestinal: normoactive bowel sounds, soft, non-tender abdomen Genitourinary: no bladder fullness Musculoskeletal: full muscle strength Neurologic: other (decreased sensation over left face) Psychiatric: anxious ICD10 Worksheet Patient Problems: Problems Problem Status Onset Acute ischemic stroke Acute Vertebral artery occlusion Acute
[2017-05-09] MEDS: ACETAMINOPHEN 325 MG TAB PO PRN (09:45)
--- NOTE | 2017-05-09 09:50 | PDMN ---
Medical Necessity Medical necessity: Patient meets INPT criteria per physician note and [facility] M-83 Stroke: Ischemic - 2 days - (return of previous stroke smptoms p discharge 05/07 ; CT angiogram shows L vertebral occlusion w/intraluminal thrombus and CVA; anticipated LOS > 2 midnights for IV heparin and PT/OT/ST eval and treatment.)
[2017-05-09] MEDS ORDERED: ENOXAPARIN 60 MG/0.6 ML SYR SC SCH (14:15)
[2017-05-09 15:04] VITALS: BP 90/56; PULSE 74; RESP 16; O2SAT 96
--- NOTE | 2017-05-09 15:33 | ASMTCMCOM ---
CM Note CM Note Notes: SPL and inpatient rehab eval ordered. Will await therapies recommendations to determine d/c needs. CM will follow. Date Signed: 05/09/2017 03:32 PM Electronically Signed By:Norma Guillen LCSW
--- NOTE | 2017-05-09 21:09 | GDS ---
[f rep st] DISCHARGE SUMMARY DISCHARGE DIAGNOSES: 1. Migraines. 2. Hypothyroidism. 3. Chronic left vertebral artery occlusion, stroke. 4. Patent foramen ovale. HISTORY OF PRESENT ILLNESS: A 31-year-old female who was just discharged from [facility] 04/2014 after sustaining a stroke. She presented to the hospital on May 05 as a stroke alert. She had left complete hemiparesis, but during her initial evaluation in the ER, her symptoms rapidly improved. Thus, she was not felt to be a tPA candidate. At the time of discharge, her residual neuro symptom was a little bit of left-sided facial numbness. She was found to have a left vertebral artery occlusion with collateralization from the right. She was seen in consultation by Dr. Sosa, and hypercoagulable workup was sent. DISCHARGE MEDICATIONS: Aspirin 81 mg and Lovenox 40 mg daily. IMAGING: Her echo showed a PFO, and Cardiology placed a LINQ monitor prior to discharge. Her MRI showed a medullary infarct, and her CTA was negative for PE. HOSPITAL COURSE: She returned to the hospital yesterday with recurrence of symptoms while in a meditation class. She noticed recurrence of the left-sided numbness in her arm, torso, and leg, and her arm felt weak. Not as severe as the first time. She also developed visual aura, which she had prior to her previous stroke, and some slurred speech. HOSPITAL COURSE BY PROBLEM: 1. Left-sided numbness: This is residual symptoms from her recent stroke. CT head did not show a new area of infarct nor did an MRI. She was evaluated by Dr. Be with Neurology. She will resume her aspirin 81 mg daily, but change Lovenox to therapeutic dose 70 mg twice daily until hypercoagulable workup completed. Continue on statin. 2. Chronic vertebral artery occlusion: Again, there is no change on MRI. Hypercoagulable labs pending. Follow up with Dr. Malone, as well as Neurology. Continue aspirin and full-dose anticoagulation with Lovenox. 3. I spent significant time with patient and family counseling on strict precautions and avoiding high velocity activities or risk to the neck, including no neck massage, anything to increase intracranial pressure. 4. 5. History of migraines, stable. DISPOSITION: The patient is stable for discharge home with family. MEDICATIONS: Lovenox 70 mg twice daily. Resume home medications as previously described. FOLLOWUP: 1. Cardiology next week. 2. Dr. Be with Neurology in 6-[address] Malone with Hematology. Time spent on discharge: 60 minutes examining the patient, reviewing prior records and imaging. Discussed the case with Dr. Be, and counseling patient and family on discharge plan and treatment. /[id number]/MODL MTDD
--- NOTE | 2017-05-10 15:44 | ASDISCHSUM ---
Discharge Information Plan Status:Home with No Needs Medically Cleared to Leave:05/08/2017 Discharge Date:05/09/2017 04:55 PM CM D/C Disposition:Home, Routine, Self-Care ADT D/C Disposition:Home, Routine, Self-Care Projected Discharge Date:05/09/2017 12:00 AM Transportation at D/C: Discharge Delay Reason: Follow-Up Date:05/09/2017 12:00 AM Discharge Slot: Final Diagnosis: Placement Information Patient Contact Information Contact Name:PN Relationship: Address: Home Phone: Work Phone: City: Alternate Phone: State[address] Code: Email: Financial Information Financial Class:HMO and PPO Plans Primary Plan Desc:[facility] Primary Plan Number:[id number] Secondary Plan Desc: Secondary Plan Number: Assessment Information LACE LACE Acuity / Level of Care Answers: Was the patient admitted to hospital via the emergency department? Yes: Comorbidities - select Answers: Cerebrovascular disease all that apply Emergency dept visits in Answers: 2 last 6 months Score: 6 Date Signed: 05/08/2017 04:43 PM Electronically Signed By:Magdalena Rose RN [facility] CM Progress Note CM Note CM Note Notes: Chart reviewed and met with patient in ER Patient admitted to [facility] on 05/05/17 and discharged home yesterday, 05/07/17 (see details in reports). Patient presents today with similar symptoms and is to be admitted to the ICU for continued work up. Patient has strong support network of family including a sister at the bedside, her father who is with her 18 month old child, and a sister in law, Concepcion who is in the process of notifying patient's (he is in [place] with the [employer]) through the proper channels in order to get him home. Concepcion assures CM that she will let CM and/or hospital medicine know what we need to do to provided any necessary documentation, etc. to facilitate this process. CM will follow patient through hospital admission and assist with D/C planning as needed. Date Signed: 05/08/2017 04:54 PM Electronically Signed By:Magdalena Rose RN [facility] Progress Note CM Note CM Note Notes: SPL and inpatient rehab eval ordered. Will await therapies recommendations to determine d/c needs. CM will follow. Date Signed: 05/09/2017 03:32 PM Electronically Signed By:Norma Guillen LCSW Intervention Information
== END 2017-05-09 16:55 | disposition home or self-care (01) | DRG 57 ==
LOC: F2N 16:19
PROVIDERS: ADMIT Internal Medicine; ATTEND Internal Medicine
DX: I69.354 Hemiplegia and hemiparesis following cerebral infarction affecting left non-dominant side (principal); E03.9 Hypothyroidism, unspecified; G43.909 Migraine, unspecified, not intractable, without status migrainosus; Q21.1 Atrial septal defect; I65.02 Occlusion and stenosis of left vertebral artery
CPT/HCPCS: 85520-90; 92610-GN; 97161-GP; 97166-GO; J1644; J1650; J2550; Q9967

== ENCOUNTER 2017-06-10 11:20 | Day surgery (SDC) | payer OTHER ==
[2017-06-10] MEDS ORDERED: LIDOCAINE 1% 300 MG/30 ML SDV SC ONE (11:28)
--- NOTE | 2017-06-10 13:17 | EPPROC ---
Electrophysiology Procedure Note: Procedure - ILR explant Indication - patient request, etiology of cryptogenic stroke identified Procedure - Local anesthesia. Sterile precautions. Using blunt and sharp dissection and electrocautery, ILR pocket was opened and ILR removed. Wound closed with tonya. No complications Follow up - staple removal at in 1 week Patient Problems: Problems Problem Status Onset Vertebral artery occlusion Acute Acute ischemic stroke Acute
== END 2017-06-10 13:31 | disposition home or self-care (01) ==
LOC: FCATH 11:20
PROVIDERS: ATTEND Internal Medicine Cardiovascular Disease
PROC: 0JPT32Z Removal of Monitoring Device from Trunk Subcutaneous Tissue and Fascia, Percutaneous Approach (ICD-10-PCS; principal; 2017-06-10)
DX: Z45.09 Encounter for adjustment and management of other cardiac device (principal); Q21.1 Atrial septal defect; Z86.73 Personal history of transient ischemic attack (TIA), and cerebral infarction without residual deficits